=== PATIENT | male | born 1995 | race African-American/Black ===

== ENCOUNTER → 2017-10-30 | Outpatient (REF) | payer OTHER ==
[2017-10-30 12:36] LABS: URIC ACID 6.6 MG/DL (3.5-7.2)
[2017-10-30 12:36] LABS: RHEUMATOID FACTOR QUANT 13.9 IU/ML (0-15.0)
[2017-10-30 13:27] LABS: ERYTHROCYTE SEDIMENTATION RATE 3 mm/hr (0-15)
== END ==
LOC: M LABDRAW1 11:41
DX: M51.36 Other intervertebral disc degeneration, lumbar region (principal)
CPT/HCPCS: 84550

== ENCOUNTER → 2017-11-19 | Outpatient (CLI) | payer OTHER | LOC: M RAD 13:59 | DX: M51.36 Other intervertebral disc degeneration, lumbar region (principal); M51.26 Other intervertebral disc displacement, lumbar region; M51.27 Other intervertebral disc displacement, lumbosacral region | CPT/HCPCS: 72148 ==